=== PATIENT | female | born 1955 | race Two or more races ===

== ENCOUNTER 2018-07-18 11:04 | Inpatient (IN) | payer OTHER ==
[~2018-07-18] VITALS: Ht 165.1 cm; Wt 88.9 kg
[~2018-07-18 11:04] MED LIST: NABUMETONE750 MG PO
== END 2018-08-17 07:43 | disposition home or self-care (01) | DRG 331 ==
LOC: O/R 08-13 08:07 → SURG 08-13 08:07 → SURH 08-13 11:00 → SURG 08-13 17:21
PROVIDERS: ADMIT Colon & Rectal Surgery
PROC: 0DJD8ZZ Inspection of Lower Intestinal Tract, Via Natural or Artificial Opening Endoscopic (ICD-10-PCS; 2018-08-13)
PROC: 0DTN4ZZ Resection of Sigmoid Colon, Percutaneous Endoscopic Approach (ICD-10-PCS; principal; 2018-08-13 14:00)
DX: K57.32 Diverticulitis of large intestine without perforation or abscess without bleeding (principal); R73.01 Impaired fasting glucose; G47.33 Obstructive sleep apnea (adult) (pediatric); E66.8 Other obesity; J30.89 Other allergic rhinitis

== ENCOUNTER 2019-08-22 06:15 | Day surgery (SDC) | payer OTHER | END 2019-08-22 10:45 | disposition home or self-care (01) | LOC: AMB-ENDOS 06:15 → ADM 13:30 | PROVIDERS: ATTEND Colon & Rectal Surgery | DX: K57.32 Diverticulitis of large intestine without perforation or abscess without bleeding (principal); K64.1 Second degree hemorrhoids ==

== ENCOUNTER 2021-01-07 22:25 | Emergency (ER) | payer OTHER ==
[~2021-01-07] VITALS: Ht 165.1 cm; Wt 77.1 kg
[2021-01-07] MEDS ORDERED: GLUMETZA500 MG PO (22:49)
[2021-01-08] MEDS ORDERED: CIPRO500 MG PO (02:13)
[2021-01-08] MEDS ORDERED: PYRIDIUM200 MG PO (02:13)
[2021-01-08] MEDS ORDERED: NAPROXEN375 MG PO (02:22)
== END 2021-01-08 03:08 | disposition home or self-care (01) ==
LOC: ER
DX: N39.0 Urinary tract infection, site not specified (principal); K29.60 Other gastritis without bleeding; Z79.84 Long term (current) use of oral hypoglycemic drugs; E11.9 Type 2 diabetes mellitus without complications